=== PATIENT | male | born 1955 | race Caucasian/White ===

== ENCOUNTER → 2017-04-04 | Outpatient (CLI) | payer OTHER ==
[~2017-04-04] MED LIST: ASPI1TAB69 PO; ATOR10TA15 PO; BUPR1TAB29 PO; CANA1TAB3 PO; LOSA50TA PO
--- NOTE | 2017-04-04 13:48 | RADRPT ---
EXAM DATE/TIME: 04/04/2017 11:51 [facility] COMPARISON: No previous studies available for comparison. INDICATIONS : Stones MEDICAL HISTORY : Kidney stones SURGICAL HISTORY : Cholecystectomy. ENCOUNTER: Initial ACUITY: >1 year PAIN SCORE: 0/10 LOCATION: Bilateral Abdomen FINDINGS: Supine view of the abdomen was performed. The abdominal bowel gas pattern is normal. No abnormal mas ses or organomegaly. There is a 1.1 cm probable renal calculus on the right with small, faint stones identified in the lower pole collecting system of the left kidney. Patient appears to be status post cholecystectomy. The osseous structures are unremarkable. Atherosclerotic calcification of the pelvi c vasculature CONCLUSION: 1. Probable 1.1 cm stone in the right renal collecting system with faint calculi in the lower pole co llecting system on the left. 2. No ureteric stones. Chris Cano MD on April 04, 2017 at 13:43 Board Certified Radiologist. This report was verified electronically.
== END ==
LOC: HRAD 11:18
PROVIDERS: ATTEND Urology
DX: Z87.442 Personal history of urinary calculi (principal)
CPT/HCPCS: 74000

== ENCOUNTER → 2017-04-12 | Outpatient (CLI) | payer OTHER ==
[~2017-04-12] MED LIST changes: +ASPI81TA11 PO; +METF-382 PO
--- NOTE | 2017-04-12 16:08 | RADRPT ---
EXAM DATE/TIME: 04/12/2017 14:08 [facility] COMPARISON: CT ABDOMEN & PELVIS W/O CONTRAST, November 20, 2013, 16:40. INDICATIONS : Abdominal pain. Evaluate for renal stone. ORAL CONTRAST: No oral contrast ingested. RADIATION DOSE: 8.54 CTDIvol (mGy) MEDICAL HISTORY : Renal calculi. SURGICAL HISTORY : stone removal x 10 ENCOUNTER: Initial ACUITY: 1 week PAIN SCALE: 2/10 LOCATION: Right abdominal. TECHNIQUE: Volumetric scanning of the abdomen and pelvis was performed. Using automated exposure control and ad justment of the mA and/or kV according to patient size, radiation dose was kept as low as reasonably achievable to obtain optimal diagnostic quality images. DICOM format image data is available electro nically for review and comparison. FINDINGS: LOWER LUNGS: The visualized lower lungs are clear. LIVER: Stable 2.3 cm focal mass right lobe of the liver. Gallbladder surgically absent. There is no ductal dilatation. SPLEEN: Normal size without lesion. PANCREAS: Within normal limits. KIDNEYS: The right kidney is unremarkable. There is enlarged calcification measuring 1 cm sitting just above the right kidney and is not within the kidney or the collecting system. There is a 10.5 cm left jesus l cyst mid to lower pole. There is an 1 cm calcification lower pole left kidney. There are no calci fications along the expected course of either ureter. ADRENAL GLANDS: Within normal limits. VASCULAR: Moderate vascular calcifications are noted. BOWEL/MESENTERY: The stomach, small bowel, and colon demonstrate no acute abnormality. There is no free intraperitone al air or fluid. ABDOMINAL WALL: Within normal limits. RETROPERITONEUM: There is no lymphadenopathy. BLADDER: No wall thickening or mass. REPRODUCTIVE: Calcified seminal vesicles are evident. INGUINAL: There is no lymphadenopathy or hernia. MUSCULOSKELETAL: Minimal sclerosis left T12 rib stable from the comparison study. CONCLUSION: Large left renal cyst Nonobstructing 1 cm left renal stone There no calcifications in the right kidney The vesicle calcifications Stable mass right lobe of the liver. Toribio Arrieta MD FACR on April 12, 2017 at 16:01 Board Certified Radiologist. This report was verified electronically.
== END ==
LOC: HRAD 13:47
PROVIDERS: ATTEND Urology
DX: Z87.442 Personal history of urinary calculi (principal)
CPT/HCPCS: 74176